=== PATIENT | female | born 1990 | race Caucasian/White ===

== ENCOUNTER 2019-05-10 16:23 | Emergency (ER) | payer OTHER, SELFPAY ==
[2019-05-10 16:31] VITALS: BP 141/79; PULSE 67; RESP 16; TEMP 36.7; O2SAT 99
--- NOTE | 2019-05-10 16:40 | ED.URI ---
HPI - URI/Sore Throat General Chief Complaint: Upper Respiratory Infection Stated Complaint: COUGH/DRAINAGE/TIGHT CHEST/SOB Time Seen by Provider: 05/10/19 16:40 Source: patient and RN notes reviewed Mode of arrival: ambulatory Limitations: no limitations History of Present Illness HPI Narrative: 29-year-old female who presents to [facility] care with 10-day history of cough with chest feeling tight and some shortness of breath. Patient does have a history of asthma and has been using her inhaler as needed but symptoms have not resolved. Patient states her roommate had influenza recently and thinks exposure may of exacerbated her symptoms. Patient denies any ear pain,sore throat, has minimal nasal discharge, no fevers, sweats, or chills noted. Patient states chest feels tight with deep inspiration, denies any acute respiratory difficulty with SAO2 99% on room air. MD elicited complaint: cough and other (chest tightness) Pertinent past history: asthma Onset (ago): day(s) (10) Consistency: progressively worsening Severity: mild Description of mucous: clear Able to tolerate fluids by mouth: Yes Exacerbating factors: exertion and deep breaths Relieving factors: other (inhaler helps some) Context: sick contacts (room mate had flu) Associated symptoms: cough and shortness of breath Treatments prior to arrival: other (inhaler) Related Data Home Medications Medication Instructions Recorded Confirmed hydroxyzine pamoate 25 mg capsule 25 mg PO TID PRN 03/06/19 norgestrel 0.3 mg-ethinyl 1 tablet PO DAILY 03/06/19 estradiol 30 mcg tablet cetirizine 10 mg tablet 10 mg PO DAILY 04/26/19 mupirocin 2 % topical ointment 1 applic TOPICAL TID 04/26/19 Allergies Allergy/AdvReac Type Severity Reaction Status Date / Time Sulfa (Sulfonamide Allergy Severe Unknown Verified 04/26/19 16:18 Antibiotics) cat dander Allergy Unknown Unknown Verified 04/26/19 16:17 mendoza Allergy Unknown Unknown Verified 04/26/19 16:17 CATS Allergy Mild unk Uncoded 04/26/19 16:17 Review of Systems Review of Systems: Narrative: CONSTITUTIONAL: Denies fever, chills, or sweats. EYES: Denies visual changes, redness, or discharge. ENT: Positive rhinorrhea, mild nasal congestion, no sore throat, or otalgia. CARDIOVASCULAR: Denies chest pain, palpitations, or edema. RESPIRATORY: Positive cough tightness to chest with cough, denies acute dyspnea. GASTROINTESTINAL: Denies abdominal pain, nausea, vomiting, or diarrhea. GENITOURINARY: Denies dysuria or hematuria. SKIN: Denies rash or itching. MUSCULOSKELETAL: Denies back pain, joint pain, or myalgia. NEUROLOGIC: Denies headache, numbness, or weakness. PSYCHIATRIC: History anxiety or depression. All systems reviewed & are unremarkable except as noted in HPI and below PMFSH Past Medical History Medical History (Updated 05/10/19 @ 17:06 by Aimee Santiago NP) Anxiety Asthma due to seasonal allergies 08/31/2017 Environmental allergies Hypothyroidism (acquired) Primary osteoarthritis of right knee 09/07/2018 Surgical History Surgical History (Updated 05/10/19 @ 17:06 by Aimee Santiago NP) Status post arthroscopic surgery of right knee Family History Family History (Updated 09/07/18 @ 16:56 by DOCTOR UNKNOWN) Grandparent Family history of cardiovascular disease Family history of malignant neoplasm of breast in first degree relative Social History Social History (Updated 04/26/19 @ 16:00 by Virginia Goss) Smoking status: Never smoker Second hand tobacco smoke exposure: Yes Alcohol intake: current Substance use: never Substance use type: does not use Gender identity (if verbalized by the patient): Female Comments At time of signature, agree with nursing past medical, surgical, social history. There is no relevant family history pertinent to the presenting complaint Exam Narrative: Exam Narrative: GENERAL: Well-appearing, well-nourished, and in no acute distress. HEA
== END 2019-05-10 16:55 | disposition home or self-care (01) ==
PROVIDERS: Emergency Provider Registered Nurse; PCP Family Medicine
DX: J45.41 Moderate persistent asthma with (acute) exacerbation (principal); F41.9 Anxiety disorder, unspecified; E03.9 Hypothyroidism, unspecified; M17.11 Unilateral primary osteoarthritis, right knee
CPT/HCPCS: 99213; G0463

== ENCOUNTER 2023-07-13 13:15 | Outpatient (CLI) | payer OTHER, SELFPAY ==
--- NOTE | ~2023-07-13 | MM_ITS ---
EXAMINATION: MM diagnostic shannan BI w jonathan HISTORY: Left breast pain TECHNIQUE: Additional 3-D tomosynthesis images of the breasts were performed and synthetic 2-D images were generated. CAD analysis was submitted and interpreted. COMPARISON: None BREAST PARENCHYMAL COMPOSITION: Not dense: There are scattered areas of fibroglandular density. FINDINGS: There are no suspicious masses, calcifications or architectural distortion in either breast to suggest malignancy. IMPRESSION: 1. No mammographic evidence for malignancy in either breast. 2. Routine yearly screening mammogram and regular clinical breast examination at age 40 is recommende d. BI-RADS Category 1: Negative Reviewed, dictated and finalized at location A. IMPRESSION: 1. No mammographic evidence for malignancy in either breast. 2. Routine yearly screening mammogram and regular clinical breast examination a t age 40 is recommended. BI-RADS Category 1: Negative
== END 2023-07-13 13:16 | disposition home or self-care (01) ==
PROVIDERS: PCP Family Medicine; Visit Provider Nurse Practitioner Obstetrics & Gynecology
DX: N64.4 Mastodynia (principal)
CPT/HCPCS: 77062; 77066; G0279

== ENCOUNTER 2023-11-02 00:28 | Day surgery (SDC) | payer OTHER, SELFPAY ==
[2023-10-13 09:46] VITALS: BMI 49.5
--- NOTE | 2023-11-02 07:04 | WPDANESEPPF ---
Anes - Initial Pre Proc Eval Procedure: Operation Date: 11/02/23 09:00 Proposed Procedures p Colonoscopy - Rudolph Pineda MD Date/Time: 11/02/23 07:04 Surgeon: Rudolph Pineda MD Pre Op Diagnosis: Melena Patient Data Age: 33 Gender: F Height: 1.75 m Weight: 152.2 kg Allergies Allergy/AdvReac Type Severity Reaction Status Date / Time Sulfa (Sulfonamide Allergy Severe Unknown Verified 11/02/23 07:39 Antibiotics) cat dander Allergy Unknown Unknown Verified 11/02/23 07:39 mendoza Allergy Unknown Unknown Verified 11/02/23 07:39 CATS Allergy Mild unk Uncoded 11/02/23 07:39 Home Medications Medication Instructions Recorded Confirmed Type norgestrel 0.3 mg-ethinyl 1 tablet PO DAILY 03/06/19 11/02/23 History estradiol 30 mcg tablet (Low-Ogestrel (28)) cetirizine 10 mg tablet 10 mg PO DAILY 04/26/19 11/02/23 History diclofenac sodium 1 % topical gel 2 g topical QID 12/30/20 11/02/23 History diclofenac sodium 75 mg 75 mg PO BID 12/30/20 11/02/23 History tablet,delayed release fluticasone propionate 50 1 spray intranasal DAILY PRN 07/08/21 11/02/23 History mcg/actuation nasal allergy symptoms spray,suspension albuterol sulfate 90 mcg/actuation 2 inh inhalation Q4H PRN shortness 07/07/22 11/02/23 Rx aerosol inhaler of breath or wheezing #8.5 grams levothyroxine 125 mcg tablet 125 mcg PO DAILY #90 tabs 08/23/23 11/02/23 Rx Patient hx anesthesia problems: none Family hx anesthesia problems: none Results Review: All pre-operative results and documents have been reviewed as part of the pre-operative evaluation. [facility] Past Medical History Medical History Achilles tendinitis Anxiety Asthma due to seasonal allergies 08/31/2017 Environmental allergies Hypothyroidism (acquired) Otitis media Primary osteoarthritis of right knee 09/07/2018 Vertigo Vitamin D deficiency Surgical History Surgical History Status post arthroscopic surgery of right knee (~2019) Family History Family History Grandparent Family history of cardiovascular disease Family history of malignant neoplasm of breast in first degree relative Social History Social History Smoking status: Never smoker Smokeless tobacco user: chewing tobacco Second hand tobacco smoke exposure: Yes Alcohol intake: current Drinks per week: 1 Alcohol use details: consumes 2 beers or 2 mixed drinks weekly Substance use: never Substance use type: does not use Lack of Transportation: No Lack of Food: Never True Current Housing: I Have Housing Concerned About Future Housing: No Difficulty Paying Gas/Electric Bills: No Difficulty Paying for Meds: No Currently Unemployed: No Education: Bachelor's Degree Difficulty w/ Childcare or Family Care: No Living arrangements: with family Occupation/Education: occupation Gender identity (if verbalized by the patient): Female Spiritual care concerns: No Agree to blood products: Yes Anes - Eval Final PreProcedure Day of Procedure 11/02/23 07:04 Patient weight: morbidly obese Heart: regular rate and rhythm Lungs: clear to auscultation Airway: Mallampati scale class II Neurological: alert and oriented Last oral intake: >/= 8 hours ASA classification: III Emergent: no Anesthetic plan: proceed Anesthesia type and monitoring: general GIVS and standard monitoring Results Review: All pre-operative results and documents have been reviewed as part of the pre-operative evaluation. Informed Consent: The patient's anesthetic plan and its attendant risks and benefits were discussed with the patient/family/POA. Questions were solicited and answers provided to the satisfaction of the patient/family/POA.
[2023-11-02 07:40] VITALS: BP 142/87; PULSE 75; RESP 20; TEMP 35.7; O2SAT 100; BMI 48.1
[2023-11-02 07:47] LABS: BEDSIDEPREGUCG Negative (Negative)
[2023-11-02] MEDS: LACTATED RINGERS 1,000 ML 150 ML IV CONT (07:59)
--- NOTE | 2023-11-02 08:17 | PM.HPGS ---
History of Present Illness History of Present Illness Consent: Risks, benefits, and alternatives have been discussed and questions answered. Patient agrees to proceed with procedure. Chief complaint: Melena Narrative: Mary Welch is a 33 year old female here for first colonoscopy, had rectal bleeding Review of Systems Review of Systems: All systems reviewed & are unremarkable except as noted in HPI and below PMFSH Past Medical History Medical History (Updated 11/02/23 @ 08:21 by Rudolph Pineda MD) Achilles tendinitis Anxiety Asthma due to seasonal allergies 08/31/2017 Environmental allergies Hypothyroidism (acquired) Otitis media Primary osteoarthritis of right knee 09/07/2018 Rectal bleeding Vertigo Vitamin D deficiency Surgical History Surgical History Status post arthroscopic surgery of right knee (~2018) Family History Family History Grandparent Family history of cardiovascular disease Family history of malignant neoplasm of breast in first degree relative Social History Social History Smoking status: Never smoker Smokeless tobacco user: chewing tobacco Second hand tobacco smoke exposure: Yes Alcohol intake: current Drinks per week: 1 Alcohol use details: consumes 2 beers or 2 mixed drinks weekly Substance use: never Substance use type: does not use Lack of Transportation: No Lack of Food: Never True Current Housing: I Have Housing Concerned About Future Housing: No Difficulty Paying Gas/Electric Bills: No Difficulty Paying for Meds: No Currently Unemployed: No Education: Bachelor's Degree Difficulty w/ Childcare or Family Care: No Living arrangements: with family Occupation/Education: occupation Gender identity (if verbalized by the patient): Female Spiritual care concerns: No Agree to blood products: Yes Meds Home Medications and Allergies Home Medications Medication Instructions Recorded Confirmed Type norgestrel 0.3 mg-ethinyl 1 tablet PO DAILY 03/06/19 11/02/23 History estradiol 30 mcg tablet (Low-Ogestrel (28)) cetirizine 10 mg tablet 10 mg PO DAILY 04/26/19 11/02/23 History diclofenac sodium 1 % topical gel 2 g topical QID 12/30/20 11/02/23 History diclofenac sodium 75 mg 75 mg PO BID 12/30/20 11/02/23 History tablet,delayed release fluticasone propionate 50 1 spray intranasal DAILY PRN 07/08/21 11/02/23 History mcg/actuation nasal allergy symptoms spray,suspension albuterol sulfate 90 mcg/actuation 2 inh inhalation Q4H PRN shortness 07/07/22 11/02/23 Rx aerosol inhaler of breath or wheezing #8.5 grams levothyroxine 125 mcg tablet 125 mcg PO DAILY #90 tabs 08/23/23 11/02/23 Rx Allergies Allergy/AdvReac Type Severity Reaction Status Date / Time Sulfa (Sulfonamide Allergy Severe Unknown Verified 11/02/23 07:39 Antibiotics) cat dander Allergy Unknown Unknown Verified 11/02/23 07:39 mendoza Allergy Unknown Unknown Verified 11/02/23 07:39 CATS Allergy Mild unk Uncoded 11/02/23 07:39 Vital Signs Vital Signs - 24 hr 11/02/23 07:40 Temperature 96.3 F L Pulse Rate 75 Respiratory Rate 20 Blood Pressure 142/87 H Pulse Oximetry 100 Oxygen Delivery Room Air Exam Const: General: comfortable and no acute distress HENMT: Face/Nose/Sinus: Normal nares present Eyes: General: appearance normal, both eyes and all related structures Neck: Neck: no JVD Resp: Auscultation: clear to auscultation bilaterally Cardio: Rate: regular rate Rhythm: regular rhythm GI: Inspection: non-distended GI Palp: Yes Soft to palpation Skin: General skin exam: normal color Neuro: General: gait normal Speech: normal speech Extrem: General: normal to inspection Psych: Mental Status: mental status grossly normal Assessment and Niharika
[2023-11-02 08:36] VITALS: BP 116/62; PULSE 60; RESP 19; O2SAT 99
[2023-11-02 08:46] VITALS: BP 130/77; PULSE 61; RESP 18; O2SAT 100
[2023-11-02 08:56] VITALS: BP 109/60; PULSE 64; RESP 19; O2SAT 100
== END 2023-11-02 09:01 | disposition home or self-care (01) ==
PROVIDERS: Anesthesiology; PCP Family Medicine; Referring Provider Nurse Practitioner; Visit Provider Internal Medicine Gastroenterology
PROC: 0DJD8ZZ Inspection of Lower Intestinal Tract, Via Natural or Artificial Opening Endoscopic (ICD-10-PCS; CPT 45378; principal; 2023-11-02 09:00)
DX: K92.1 Melena (principal); E03.9 Hypothyroidism, unspecified; M17.11 Unilateral primary osteoarthritis, right knee; E55.9 Vitamin D deficiency, unspecified; F41.9 Anxiety disorder, unspecified; J45.909 Unspecified asthma, uncomplicated; F17.220 Nicotine dependence, chewing tobacco, uncomplicated; E66.01 Morbid (severe) obesity due to excess calories; Z68.42 Body mass index [BMI] 45.0-49.9, adult; Z79.51 Long term (current) use of inhaled steroids; Z98.890 Other specified postprocedural states; Z80.3 Family history of malignant neoplasm of breast; Z82.49 Family history of ischemic heart disease and other diseases of the circulatory system
CPT/HCPCS: 45378; J2704; J7120